=== PATIENT | female | born 1950 | race Caucasian/White ===

== ENCOUNTER 2024-05-06 07:52 | Inpatient (IN) | payer MEDICARE, OTHER ==
[2024-05-06 08:12] LABS: BASOPHILS PERCENT AUTO 0.1 % (0.2-1.2); EOSINOPHILS PERCENT AUTO 0.1 % (0.0-4.0); HEMOGLOBIN 11.4 g/dL (12.0-16.0); IMMATURE GRAN ABSOLUTE AUTO 0.08 x10^3/uL (0.00-0.07); LYMPHOCYTES ABSOLUTE AUTO 0.5 x10^3/uL (1.0-4.8); LYMPHOCYTES PERCENT AUTO 2.8 % (25.0-50.0); MEAN CORPUSCULAR HEMOGLOBIN 32.9 pg (26.0-32.0); MEAN CORPUSCULAR HGB CONC 33.5 g/dL (32.0-36.0); MEAN CORPUSCULAR VOLUME 98.3 fL (78.0-93.0); MONOCYTES PERCENT AUTO 5.5 % (2.0-11.0); NEUTROPHILS ABSOLUTE AUTO 16.9 x10^3/uL (1.8-7.7); NEUTROPHILS PERCENT AUTO 91.1 % (50.0-80.0); PLATELET COUNT,PLT 324 x10^3/uL (130-400); RED BLOOD CELL COUNT 3.46 x10^6/uL (4.00-5.50)
[2024-05-06 08:22] LABS: WHITE BLOOD CELL COUNT,WBC 18.6 x10^3/uL (4.0-10.0)
[2024-05-06 08:32] LABS: A/G RATIO 0.47; ALANINE AMINOTRANSFERASE,ALT 22 U/L (14-59); ALBUMIN 2.1 g/dL (3.4-5.0); ALKALINE PHOSPHATASE 84 U/L (46-116); ASPARTATE AMNIOTRANSFERASE,AST 30 U/L (15-37); BILIRUBIN TOTAL 0.5 mg/dL (0.2-1.0); BLOOD UREA NITROGEN,BUN 38 mg/dL (7-18); CALCIUM 8.9 mg/dL (8.5-10.1); CARBON DIOXIDE,CO2 21 mmol/L (21-32); CHLORIDE,CL 108 mmol/L (98-107); CREATININE 1.6 mg/dL (0.55-1.02); GLUCOSE RANDOM 152 mg/dL (70-99); POTASSIUM,K 3.5 mmol/L (3.5-5.1); PROTEIN TOTAL,TP 6.6 g/dL (6.4-8.2); SODIUM,NA 144 mmol/L (136-145)
[2024-05-06 08:33] LABS: ANION GAP 18.5 mmol/L (5-15); ESTIMATED GFR 34 mL/min (>=60)
[2024-05-06 08:35] LABS: LACTIC ACID 1.1 mmol/L (0.4-2.0)
[2024-05-06 08:55] LABS: CORONAVIRUS COVID-19 NAA NEGATIVE (NEGATIVE); INFLUENZA A NAA NEGATIVE (NEGATIVE); INFLUENZA B NAA NEGATIVE (NEGATIVE); RESPIRATORY SYNCYTIAL VIR NAA NEGATIVE (NEGATIVE)
[2024-05-06] MEDS: Sodium Chloride 0.9% 1,000 ML IV SCH (09:17)
[2024-05-06] MEDS: Azithromycin 250 MG Tab PO ONE (09:17)
[2024-05-06] MEDS: cefTRIAXone 2 GM Vial IVPUSH ONE (09:17)
[2024-05-06] MEDS ORDERED: Calcium Carbonate 750 MG Tab.Chew PO PRN (12:41)
[2024-05-06] MEDS ORDERED: Hypromellose 0.3% Ophth Soln 15 ML Bottle EYEBOTH PRN (12:44)
[2024-05-06] MEDS: Heparin Sodium 5,000 Units/ML Vial SUBCUT SCH (18:08)
[2024-05-06] MEDS: Pantoprazole 40 MG Tab.CR PO SCH (18:21)
[2024-05-06] MEDS: levETIRAcetam 500 MG Tab PO SCH (20:29)
[2024-05-06] MEDS: Carvedilol 12.5 MG Tab PO SCH (20:29)
[2024-05-06] MEDS: OLANZapine 5 MG Tab PO SCH (20:29)
[2024-05-06] MEDS: Formoterol/Mometasone 200-5 MCG 13 GM Inhaler INH SCH (20:30)
[2024-05-06] MEDS: Topiramate 25 MG Tab PO SCH (20:30)
[2024-05-06] MEDS: Gabapentin 100 MG Cap PO SCH (20:30)
[2024-05-07] MEDS: Acetaminophen 325 MG Tab PO PRN (02:55)
[2024-05-07] MEDS: Levothyroxine 25 MCG Tab PO SCH (06:06)
[2024-05-07 07:00] LABS: BASOPHILS PERCENT AUTO 0.1 % (0.2-1.2); EOSINOPHILS PERCENT AUTO 0.1 % (0.0-4.0); HEMOGLOBIN 11.3 g/dL (12.0-16.0); IMMATURE GRAN ABSOLUTE AUTO 0.07 x10^3/uL (0.00-0.07); LYMPHOCYTES ABSOLUTE AUTO 0.7 x10^3/uL (1.0-4.8); LYMPHOCYTES PERCENT AUTO 4.9 % (25.0-50.0); MEAN CORPUSCULAR HEMOGLOBIN 32.9 pg (26.0-32.0); MEAN CORPUSCULAR HGB CONC 33.2 g/dL (32.0-36.0); MEAN CORPUSCULAR VOLUME 99.1 fL (78.0-93.0); MONOCYTES ABSOLUTE AUTO 0.7 x10^3/uL (0.0-0.8); MONOCYTES PERCENT AUTO 5.2 % (2.0-11.0); NEUTROPHILS ABSOLUTE AUTO 12.8 x10^3/uL (1.8-7.7); NEUTROPHILS PERCENT AUTO 89.2 % (50.0-80.0); PLATELET COUNT,PLT 327 x10^3/uL (130-400); RED BLOOD CELL COUNT 3.43 x10^6/uL (4.00-5.50); WHITE BLOOD CELL COUNT,WBC 14.3 x10^3/uL (4.0-10.0)
[2024-05-07 07:17] LABS: CALCIUM 8.7 mg/dL (8.5-10.1); CREATININE 1.3 mg/dL (0.55-1.02); EST CRCL DRUG DOSING (CG) 33.28 mL/min
[2024-05-07] MEDS: cefTRIAXone 2 GM Vial IVPUSH SCH (08:28)
[2024-05-07] MEDS: Aspirin 81 MG Tab.Chew PO SCH (08:30)
[2024-05-07] MEDS: DULoxetine 30 MG Cap PO SCH (08:30)
[2024-05-07] MEDS: Ascorbic Acid 500 MG Tab PO SCH (08:31)
[2024-05-07] MEDS: Ferrous Sulfate 325 MG Tab PO SCH (08:31)
[2024-05-07] MEDS: Cholecalciferol (Vitamin D3) 25 MCG Tab PO SCH (08:32)
[2024-05-07] MEDS: Azithromycin 250 MG Tab PO SCH (08:32)
[2024-05-07] MEDS: amLODIPine 5 MG Tab PO SCH (08:34)
[2024-05-07] MEDS: Potassium Chloride Riders 20 MEQ in Premix Bag 1 BAG IV SCH (10:19)
[2024-05-07] MEDS: Donepezil 10 MG Tab PO SCH (10:26)
[2024-05-07] MEDS: TOPIRAMATE PO SCH (21:57)
[2024-05-08 08:22] LABS: BASOPHILS PERCENT AUTO 0.1 % (0.2-1.2); EOSINOPHILS ABSOLUTE AUTO 0.1 x10^3/uL (0.0-0.5); EOSINOPHILS PERCENT AUTO 1.1 % (0.0-4.0); HEMATOCRIT 32.1 % (33.0-47.0); HEMOGLOBIN 10.5 g/dL (12.0-16.0); IMMATURE GRAN ABSOLUTE AUTO 0.05 x10^3/uL (0.00-0.07); LYMPHOCYTES ABSOLUTE AUTO 0.8 x10^3/uL (1.0-4.8); LYMPHOCYTES PERCENT AUTO 7.1 % (25.0-50.0); MEAN CORPUSCULAR HGB CONC 32.7 g/dL (32.0-36.0); MEAN CORPUSCULAR VOLUME 100.9 fL (78.0-93.0); MONOCYTES ABSOLUTE AUTO 0.7 x10^3/uL (0.0-0.8); MONOCYTES PERCENT AUTO 6.4 % (2.0-11.0); NEUTROPHILS PERCENT AUTO 84.8 % (50.0-80.0); PLATELET COUNT,PLT 287 x10^3/uL (130-400); RED BLOOD CELL COUNT 3.18 x10^6/uL (4.00-5.50); WHITE BLOOD CELL COUNT,WBC 10.6 x10^3/uL (4.0-10.0)
[2024-05-08 08:35] LABS: CALCIUM 8.3 mg/dL (8.5-10.1); CREATININE 0.9 mg/dL (0.55-1.02); EST CRCL DRUG DOSING (CG) 48.07 mL/min
[2024-05-08 08:38] LABS: ANION GAP 14.9 mmol/L (5-15); POTASSIUM,K 2.9 mmol/L (3.5-5.1)
[2024-05-08] MEDS: Potassium Chloride Riders 20 MEQ in Premix Bag 1 BAG IV SCH (10:19)
[2024-05-08] MEDS: Potassium Chloride 20 MEQ Tab.ER PO ONE (10:27)
[2024-05-08] MEDS: Albuterol/Ipratropium 3.0-0.5 MG/3 ML Neb Soln NEB PRN (18:45)
[2024-05-09 08:28] LABS: BASOPHILS PERCENT AUTO 0.1 % (0.2-1.2); EOSINOPHILS ABSOLUTE AUTO 0.2 x10^3/uL (0.0-0.5); EOSINOPHILS PERCENT AUTO 2.4 % (0.0-4.0); HEMATOCRIT 35.4 % (33.0-47.0); HEMOGLOBIN 11.5 g/dL (12.0-16.0); IMMATURE GRAN ABSOLUTE AUTO 0.06 x10^3/uL (0.00-0.07); LYMPHOCYTES ABSOLUTE AUTO 0.8 x10^3/uL (1.0-4.8); LYMPHOCYTES PERCENT AUTO 8.3 % (25.0-50.0); MEAN CORPUSCULAR HEMOGLOBIN 32.6 pg (26.0-32.0); MEAN CORPUSCULAR HGB CONC 32.5 g/dL (32.0-36.0); MEAN CORPUSCULAR VOLUME 100.3 fL (78.0-93.0); MONOCYTES ABSOLUTE AUTO 0.5 x10^3/uL (0.0-0.8); MONOCYTES PERCENT AUTO 5.5 % (2.0-11.0); NEUTROPHILS ABSOLUTE AUTO 8.2 x10^3/uL (1.8-7.7); NEUTROPHILS PERCENT AUTO 83.1 % (50.0-80.0); PLATELET COUNT,PLT 336 x10^3/uL (130-400); RED BLOOD CELL COUNT 3.53 x10^6/uL (4.00-5.50); WHITE BLOOD CELL COUNT,WBC 9.9 x10^3/uL (4.0-10.0)
[2024-05-09 08:49] LABS: A/G RATIO 0.45; BILIRUBIN TOTAL 0.3 mg/dL (0.2-1.0); CREATININE 0.9 mg/dL (0.55-1.02); EST CRCL DRUG DOSING (CG) 48.07 mL/min; POTASSIUM,K 3.7 mmol/L (3.5-5.1); PROTEIN TOTAL,TP 6.4 g/dL (6.4-8.2)
[2024-05-09 08:50] LABS: ANION GAP 17.7 mmol/L (5-15)
[2024-05-09] MEDS: Take Home: Azithromycin 250 MG, 2 Tab Pack PO ONE ×2 (11:59)
== END 2024-05-09 13:14 | DRG 194 ==
LOC: VM.ED 07:52 → VM.MS 09:47
PROVIDERS: ADMIT Family Medicine; ATTEND Family Medicine
DX: J18.9 Pneumonia, unspecified organism (principal); E87.0 Hyperosmolality and hypernatremia; F01.518 Vascular dementia, unspecified severity, with other behavioral disturbance; J44.0 Chronic obstructive pulmonary disease with (acute) lower respiratory infection; F02.818 Dementia in other diseases classified elsewhere, unspecified severity, with other behavioral disturbance; F03.94 Unspecified dementia, unspecified severity, with anxiety; N17.9 Acute kidney failure, unspecified; J44.89 Other specified chronic obstructive pulmonary disease; Z79.890 Hormone replacement therapy; K21.9 Gastro-esophageal reflux disease without esophagitis; E03.9 Hypothyroidism, unspecified; K58.9 Irritable bowel syndrome, unspecified; G30.9 Alzheimer's disease, unspecified; F10.10 Alcohol abuse, uncomplicated; E11.9 Type 2 diabetes mellitus without complications; G43.909 Migraine, unspecified, not intractable, without status migrainosus; G40.909 Epilepsy, unspecified, not intractable, without status epilepticus; E78.00 Pure hypercholesterolemia, unspecified; I10 Essential (primary) hypertension; J44.9 Chronic obstructive pulmonary disease, unspecified; F32.A Depression, unspecified; M81.0 Age-related osteoporosis without current pathological fracture; Z66 Do not resuscitate; E87.6 Hypokalemia; D72.829 Elevated white blood cell count, unspecified; Z88.8 Allergy status to other drugs, medicaments and biological substances; Z79.1 Long term (current) use of non-steroidal anti-inflammatories (NSAID); Z79.82 Long term (current) use of aspirin; Z79.899 Other long term (current) drug therapy; Z98.84 Bariatric surgery status
CPT/HCPCS: 0241U; 36415; 71045; 80048; 80053; 82947; 83605; 85025; 94640; 96374; 99232; 99238; 99284; 99285-25; A9270-GY; J0696; J1644; J3480; J7030; J7620-GY; Q3014

== ENCOUNTER 2024-06-03 18:03 | Inpatient (IN) | payer MEDICARE, OTHER, MEDICAID ==
[2024-06-03 18:33] LABS: EOSINOPHILS PERCENT AUTO 0.1 % (0.0-4.0); HEMATOCRIT 42.8 % (33.0-47.0); HEMOGLOBIN 13.5 g/dL (12.0-16.0); IMMATURE GRAN ABSOLUTE AUTO 0.02 x10^3/uL (0.00-0.07); LYMPHOCYTES PERCENT AUTO 10.5 % (25.0-50.0); MEAN CORPUSCULAR HEMOGLOBIN 32.7 pg (26.0-32.0); MEAN CORPUSCULAR HGB CONC 31.5 g/dL (32.0-36.0); MEAN CORPUSCULAR VOLUME 103.6 fL (78.0-93.0); MONOCYTES ABSOLUTE AUTO 0.4 x10^3/uL (0.0-0.8); MONOCYTES PERCENT AUTO 4.7 % (2.0-11.0); NEUTROPHILS PERCENT AUTO 84.5 % (50.0-80.0); PLATELET COUNT,PLT 291 x10^3/uL (130-400); RED BLOOD CELL COUNT 4.13 x10^6/uL (4.00-5.50); WHITE BLOOD CELL COUNT,WBC 9.4 x10^3/uL (4.0-10.0)
[2024-06-03] MEDS: Lactated Ringers 1,000 ML IV ONE (18:51)
[2024-06-03 18:56] LABS: LACTIC ACID 1.4 mmol/L (0.4-2.0)
[2024-06-03] MEDS ORDERED: Lactated Ringers 1,000 ML IV ONE (18:57)
[2024-06-03 19:02] LABS: APPEARANCE,URINE SLIGHTLY CLOUDY (CLEAR); BILIRUBIN,URINE NEGATIVE (NEGATIVE); COLOR,URINE YELLOW (YELLOW); GLUCOSE,URINE NEGATIVE (NEGATIVE); KETONES,URINE NEGATIVE (NEGATIVE); LEUKOCYTE ESTERASE,URINE MODERATE (NEGATIVE); NITRITE,URINE NEGATIVE (NEGATIVE); OCCULT BLOOD,URINE MODERATE (NEGATIVE); PH,URINE 5.5 (5.0-8.0); PROTEIN,URINE TRACE mg/dL (NEGATIVE); UROBILINOGEN,URINE 0.2 EU/dL (0.2)
[2024-06-03 19:05] LABS: A/G RATIO 0.63; ALANINE AMINOTRANSFERASE,ALT 29 U/L (14-59); ALBUMIN 2.9 g/dL (3.4-5.0); ALKALINE PHOSPHATASE 84 U/L (46-116); ANION GAP 17.1 mmol/L (5-15); ASPARTATE AMNIOTRANSFERASE,AST 50 U/L (15-37); BILIRUBIN TOTAL 0.5 mg/dL (0.2-1.0); BLOOD UREA NITROGEN,BUN 39 mg/dL (7-18); CALCIUM 9.4 mg/dL (8.5-10.1); CARBON DIOXIDE,CO2 28 mmol/L (21-32); CHLORIDE,CL 122 mmol/L (98-107); CREATININE 1.4 mg/dL (0.55-1.02); ESTIMATED GFR 40 mL/min (>=60); GLUCOSE RANDOM 184 mg/dL (70-99); MAGNESIUM 2.5 mg/dL (1.8-2.4); POTASSIUM,K 3.1 mmol/L (3.5-5.1); PROTEIN TOTAL,TP 7.5 g/dL (6.4-8.2)
[2024-06-03 19:06] LABS: SODIUM,NA 164 mmol/L (136-145)
[2024-06-03 19:07] LABS: RBC,URINE NOT SEEN /HPF (NOT SEEN); SQUAMOUS EPITHELIAL CELLS,UR FEW /HPF (NOT SEEN); WBC,URINE 30-40 /HPF (NOT SEEN)
[2024-06-03 19:08] LABS: BACTERIA,URINE MANY /HPF (NOT SEEN); MUCUS,URINE NOT SEEN /LPF (NOT SEEN)
[2024-06-03] MEDS ORDERED: Cefepime 2 GM in Sodium Chloride 0.9% 100 ML IV ONE (19:13)
[2024-06-03] MEDS: Cefepime 2 GM Vial IVPUSH ONE (20:30)
[2024-06-03] MEDS: Potassium Chloride 20 MEQ Tab.ER PO ONE (20:30)
[2024-06-03 21:50] LABS: ANION GAP 16.3 mmol/L (5-15); BLOOD UREA NITROGEN,BUN 40 mg/dL (7-18); CALCIUM 8.9 mg/dL (8.5-10.1); CARBON DIOXIDE,CO2 26 mmol/L (21-32); CHLORIDE,CL 122 mmol/L (98-107); CREATININE 1.4 mg/dL (0.55-1.02); ESTIMATED GFR 40 mL/min (>=60); GLUCOSE RANDOM 173 mg/dL (70-99); POTASSIUM,K 3.3 mmol/L (3.5-5.1)
[2024-06-03 21:51] LABS: SODIUM,NA 161 mmol/L (136-145)
[2024-06-03] MEDS ORDERED: Sodium Chloride 0.45% with KCl 1,000 ML IV SCH (22:15)
[2024-06-03] MEDS ORDERED: Calcium Carbonate 750 MG Tab.Chew PO PRN (22:56)
[2024-06-03] MEDS ORDERED: Hypromellose 0.3% Ophth Soln 15 ML Bottle EYEBOTH PRN (22:56)
[2024-06-03] MEDS ORDERED: DEXTROSE IV SCH (23:45)
[2024-06-03] MEDS ORDERED: WATER IV SCH (23:45)
[2024-06-04] MEDS ORDERED: 50% Dextrose in Water 50 ML Syringe IVPUSH PRN (00:29)
[2024-06-04] MEDS ORDERED: Glucagon,Human Recombinant 1 MG Vial IM PRN (00:29)
[2024-06-04] MEDS ORDERED: Dextrose 5% in Water 1,000 ML IV SCH (00:45)
[2024-06-04] MEDS: REMDESIVIR 200 MG in Sodium Chloride 0.9% 250 ML IV ONE (00:48)
[2024-06-04] MEDS: Potassium Chloride 20 MEQ Tab.ER PO ONE (00:59)
[2024-06-04] MEDS: Melatonin 3 MG Tab PO SCH (01:00)
[2024-06-04] MEDS: Dextrose 5% in Water 1,000 ML IV SCH (02:11)
[2024-06-04 05:59] LABS: A/G RATIO 0.63; ALBUMIN 2.7 g/dL (3.4-5.0); BILIRUBIN DIRECT 0.14 mg/dL (0.00-0.20); BILIRUBIN INDIRECT 0.36; BILIRUBIN TOTAL 0.5 mg/dL (0.2-1.0)
[2024-06-04] MEDS: Levothyroxine 25 MCG Tab PO SCH (06:03)
[2024-06-04 06:27] LABS: HEMATOCRIT 40.6 % (33.0-47.0); IMMATURE GRAN ABSOLUTE AUTO 0.05 x10^3/uL (0.00-0.07); LYMPHOCYTES PERCENT AUTO 6.9 % (25.0-50.0); MEAN CORPUSCULAR HEMOGLOBIN 32.7 pg (26.0-32.0); MEAN CORPUSCULAR VOLUME 102.3 fL (78.0-93.0); MONOCYTES PERCENT AUTO 6.7 % (2.0-11.0); NEUTROPHILS ABSOLUTE AUTO 12.4 x10^3/uL (1.8-7.7); NEUTROPHILS PERCENT AUTO 86.1 % (50.0-80.0); PLATELET COUNT,PLT 226 x10^3/uL (130-400); RED BLOOD CELL COUNT 3.97 x10^6/uL (4.00-5.50); WHITE BLOOD CELL COUNT,WBC 14.4 x10^3/uL (4.0-10.0)
[2024-06-04 06:39] LABS: CALCIUM 8.7 mg/dL (8.5-10.1); CREATININE 1.4 mg/dL (0.55-1.02); EST CRCL DRUG DOSING (CG) 27.65 mL/min; POTASSIUM,K 3.3 mmol/L (3.5-5.1)
[2024-06-04 06:44] LABS: ANION GAP 16.3 mmol/L (5-15)
[2024-06-04] MEDS: Acetaminophen 325 MG Tab PO SCH (08:09)
[2024-06-04] MEDS: Aspirin 81 MG Tab.Chew PO SCH (08:09)
[2024-06-04] MEDS: Omeprazole 20 MG Cap.CR PO SCH (08:09)
[2024-06-04] MEDS: Topiramate 25 MG Tab PO SCH (08:09)
[2024-06-04] MEDS: OLANZapine 5 MG Tab PO SCH (08:10)
[2024-06-04] MEDS: Ferrous Sulfate 325 MG Tab PO SCH (08:10)
[2024-06-04] MEDS: Gabapentin 100 MG Cap PO SCH (08:10)
[2024-06-04] MEDS: Potassium Chloride 20 MEQ Tab.ER PO SCH (08:10)
[2024-06-04] MEDS: Memantine 10 MG Tab PO SCH (08:11)
[2024-06-04] MEDS: Cholecalciferol (Vitamin D3) 25 MCG Tab PO SCH (08:11)
[2024-06-04] MEDS: levETIRAcetam 500 MG Tab PO SCH (08:11)
[2024-06-04] MEDS: Donepezil 10 MG Tab PO SCH (08:11)
[2024-06-04] MEDS: Allopurinol 100 MG Tab PO SCH (08:12)
[2024-06-04] MEDS: Formoterol/Mometasone 200-5 MCG 13 GM Inhaler INH SCH (08:12)
[2024-06-04] MEDS: cefTRIAXone 1 GM Vial IVPUSH SCH (08:13)
[2024-06-04] MEDS: REMDESIVIR 100 MG in Sodium Chloride 0.9% 100 ML IV SCH (08:13)
[2024-06-04] MEDS: Enoxaparin 30 MG/0.3 ML Syringe SUBCUT SCH (08:14)
[2024-06-04] MEDS: Carvedilol 12.5 MG Tab PO SCH (08:15)
[2024-06-04] MEDS: amLODIPine 5 MG Tab PO SCH (08:15)
[2024-06-04] MEDS: Insulin Regular, Human 100 Units/ML 10 ML Vial SUBCUT SCH (09:15)
[2024-06-04] MEDS: Potassium Chloride 10 MEQ Tab.ER PO SCH (09:15)
[2024-06-04 10:23] LABS: CALCIUM 8.6 mg/dL (8.5-10.1); CREATININE 1.4 mg/dL (0.55-1.02); EST CRCL DRUG DOSING (CG) 27.65 mL/min; POTASSIUM,K 3.2 mmol/L (3.5-5.1)
[2024-06-04 10:24] LABS: ANION GAP 14.2 mmol/L (5-15)
[2024-06-04 13:35] LABS: A/G RATIO 0.63; ALBUMIN 2.5 g/dL (3.4-5.0); BILIRUBIN DIRECT 0.07 mg/dL (0.00-0.20); BILIRUBIN INDIRECT 0.23; BILIRUBIN TOTAL 0.3 mg/dL (0.2-1.0); PROTEIN TOTAL,TP 6.5 g/dL (6.4-8.2)
[2024-06-04] MEDS: Cefepime 2 GM Vial IV SCH (16:18)
[2024-06-04 16:24] LABS: CALCIUM 8.6 mg/dL (8.5-10.1); CREATININE 1.2 mg/dL (0.55-1.02); EST CRCL DRUG DOSING (CG) 32.26 mL/min
[2024-06-04] MEDS: WATER FOR INJECTION IV SCH (16:48)
[2024-06-04] MEDS: CEFEPIME IV SCH (16:48)
[2024-06-04] MEDS: STERILE IV SCH (16:48)
[2024-06-04] MEDS: Sodium Chloride 0.45% with KCl 1,000 ML IV SCH (18:36)
[2024-06-04 20:36] LABS: CALCIUM 8.5 mg/dL (8.5-10.1); CREATININE 1.1 mg/dL (0.55-1.02); EST CRCL DRUG DOSING (CG) 35.19 mL/min
[2024-06-05] MEDS: Meropenem 1 GM in Sodium Chloride 0.9% 100 ML IV SCH ×2 (10:51→11:14)
[2024-06-06 07:34] LABS: BASOPHILS PERCENT AUTO 0.1 % (0.2-1.2); EOSINOPHILS ABSOLUTE AUTO 0.2 x10^3/uL (0.0-0.5); EOSINOPHILS PERCENT AUTO 1.5 % (0.0-4.0); HEMATOCRIT 37.9 % (33.0-47.0); HEMOGLOBIN 12.2 g/dL (12.0-16.0); IMMATURE GRAN ABSOLUTE AUTO 0.13 x10^3/uL (0.00-0.07); LYMPHOCYTES ABSOLUTE AUTO 1.3 x10^3/uL (1.0-4.8); LYMPHOCYTES PERCENT AUTO 11.3 % (25.0-50.0); MEAN CORPUSCULAR HEMOGLOBIN 32.1 pg (26.0-32.0); MEAN CORPUSCULAR HGB CONC 32.2 g/dL (32.0-36.0); MEAN CORPUSCULAR VOLUME 99.7 fL (78.0-93.0); MONOCYTES ABSOLUTE AUTO 0.6 x10^3/uL (0.0-0.8); NEUTROPHILS PERCENT AUTO 80.9 % (50.0-80.0); PLATELET COUNT,PLT 170 x10^3/uL (130-400); WHITE BLOOD CELL COUNT,WBC 11.1 x10^3/uL (4.0-10.0)
[2024-06-06 07:45] LABS: A/G RATIO 0.63; ALBUMIN 2.2 g/dL (3.4-5.0); BILIRUBIN TOTAL 0.4 mg/dL (0.2-1.0); CALCIUM 8.8 mg/dL (8.5-10.1); CREATININE 0.9 mg/dL (0.55-1.02); EST CRCL DRUG DOSING (CG) 43.01 mL/min; POTASSIUM,K 3.1 mmol/L (3.5-5.1); PROTEIN TOTAL,TP 5.7 g/dL (6.4-8.2)
[2024-06-06 07:47] LABS: ANION GAP 15.1 mmol/L (5-15)
[2024-06-06] MEDS: Ciprofloxacin 500 MG Tab PO SCH (09:31)
[2024-06-06] MEDS: DULoxetine 30 MG Cap PO SCH (09:32)
[2024-06-06] MEDS: Potassium Chloride 10 MEQ Tab.ER PO SCH (09:32)
[2024-06-06] MEDS ORDERED: cefTRIAXone 1 GM Vial IVPUSH SCH (12:30)
[2024-06-06] MEDS: Sodium Chloride 0.9% 10 ML Syringe FLUSH PRN (13:33)
[2024-06-06] MEDS: cefTRIAXone 2 GM Vial IVPUSH SCH (13:33)
[2024-06-07 07:14] LABS: A/G RATIO 0.62; ALBUMIN 2.1 g/dL (3.4-5.0); BILIRUBIN TOTAL 0.3 mg/dL (0.2-1.0); CALCIUM 8.5 mg/dL (8.5-10.1); CREATININE 0.9 mg/dL (0.55-1.02); EST CRCL DRUG DOSING (CG) 43.01 mL/min; POTASSIUM,K 3.2 mmol/L (3.5-5.1); PROTEIN TOTAL,TP 5.5 g/dL (6.4-8.2)
[2024-06-07 07:39] LABS: ANION GAP 13.2 mmol/L (5-15)
[2024-06-07 07:57] LABS: BASOPHILS PERCENT AUTO 0.1 % (0.2-1.2); EOSINOPHILS ABSOLUTE AUTO 0.3 x10^3/uL (0.0-0.5); EOSINOPHILS PERCENT AUTO 4.2 % (0.0-4.0); HEMATOCRIT 34.7 % (33.0-47.0); LYMPHOCYTES ABSOLUTE AUTO 1.1 x10^3/uL (1.0-4.8); LYMPHOCYTES PERCENT AUTO 15.1 % (25.0-50.0); MEAN CORPUSCULAR HEMOGLOBIN 32.4 pg (26.0-32.0); MEAN CORPUSCULAR HGB CONC 31.7 g/dL (32.0-36.0); MEAN CORPUSCULAR VOLUME 102.1 fL (78.0-93.0); MONOCYTES ABSOLUTE AUTO 0.5 x10^3/uL (0.0-0.8); NEUTROPHILS PERCENT AUTO 72.2 % (50.0-80.0); PLATELET COUNT,PLT 188 x10^3/uL (130-400)
[2024-06-07] MEDS: Potassium Chloride 10 MEQ Tab.ER PO SCH (09:14)
[2024-06-07] MEDS: Iopamidol 612 MG/ML 100 ML Bottle IVPUSH ONE (11:23)
[2024-06-07] MEDS: VANCOmycin 125 MG Cap PO SCH (12:36)
[2024-06-07] MEDS: VANCOmycin 1.5 GM/300 ML 1.5 GM in Premix Bag 1 BAG IV ONE (12:36)
[2024-06-07] MEDS: Sodium Chloride 0.45% with KCl 1,000 ML IV SCH (14:32)
[2024-06-08] MEDS ORDERED: VANCOmycin 1 GM in Sodium Chloride 0.9% 250 ML IV SCH (09:00)
== END 2024-06-07 16:15 | disposition short-term general hospital (02) | DRG 689 ==
LOC: VM.ED 18:03 → VM.MS 22:16
PROVIDERS: ADMIT Family Medicine; ATTEND Family Medicine
PROC: XW033E5 Introduction of Remdesivir Anti-infective into Peripheral Vein, Percutaneous Approach, New Technology Group 5 (ICD-10-PCS; principal; 2024-06-03)
DX: N13.6 Pyonephrosis (principal); N39.0 Urinary tract infection, site not specified; E87.1 Hypo-osmolality and hyponatremia; U07.1 COVID-19; E87.0 Hyperosmolality and hypernatremia; F02.83 Dementia in other diseases classified elsewhere, unspecified severity, with mood disturbance; F02.84 Dementia in other diseases classified elsewhere, unspecified severity, with anxiety; F01.54 Vascular dementia, unspecified severity, with anxiety; G93.40 Encephalopathy, unspecified; Z16.29 Resistance to other single specified antibiotic; R78.81 Bacteremia; A04.71 Enterocolitis due to Clostridium difficile, recurrent; N17.9 Acute kidney failure, unspecified; Z66 Do not resuscitate; H91.90 Unspecified hearing loss, unspecified ear; H54.7 Unspecified visual loss; E78.00 Pure hypercholesterolemia, unspecified; I10 Essential (primary) hypertension; J44.9 Chronic obstructive pulmonary disease, unspecified; M81.0 Age-related osteoporosis without current pathological fracture; G30.9 Alzheimer's disease, unspecified; E03.9 Hypothyroidism, unspecified; K21.9 Gastro-esophageal reflux disease without esophagitis; E11.9 Type 2 diabetes mellitus without complications; G40.909 Epilepsy, unspecified, not intractable, without status epilepticus; G43.909 Migraine, unspecified, not intractable, without status migrainosus; E86.0 Dehydration; E87.6 Hypokalemia; E88.09 Other disorders of plasma-protein metabolism, not elsewhere classified; M10.9 Gout, unspecified; R29.6 Repeated falls; W19.XXXD Unspecified fall, subsequent encounter; S62.101D Fracture of unspecified carpal bone, right wrist, subsequent encounter for fracture with routine healing; Z88.8 Allergy status to other drugs, medicaments and biological substances; Z79.82 Long term (current) use of aspirin; Z79.899 Other long term (current) drug therapy; Z79.52 Long term (current) use of systemic steroids
CPT/HCPCS: 36415; 70450; 71045; 71260; 74177; 80048; 80053; 80076; 81001; 82947; 83605; 83735; 84132; 84295; 85025; 87040; 87077; 87086; 87088; 87147; 87186; 93005; 93010; 96361; 96374; 99223; 99223-GT; 99284; 99285-25; A9270-GY; C1758; J0248; J0692; J0696; J1650; J2185; J3372; J3480; J3490; J7060; J7120; Q3014; Q9967